=== PATIENT | female | born 1965 | race Caucasian/White ===

== ENCOUNTER 2022-03-31 14:13 | Emergency (ER) | payer SELFPAY ==
[2022-03-31] VITALS (7 sets, daily range): BP systolic 110–135; BP diastolic 75–81
[~2022-03-31] VITALS: Ht 172.7 cm; Wt 91.0 kg
== END 2022-03-31 15:50 | disposition home or self-care (01) | DRG 563 ==
LOC: ED 14:13
DX: M23.8X2 Other internal derangements of left knee (principal); X50.1XXA Overexertion from prolonged static or awkward postures, initial encounter